=== PATIENT | male | born 1955 | race Caucasian/White ===

== ENCOUNTER → 2017-08-02 | Outpatient (CLI) | payer BC ==
--- NOTE | 2017-08-02 11:40 | ECHOF ---
Referral Reason:A Fib I48.91 MEASUREMENTS -------- HEIGHT: 182.9 cm WEIGHT: 82.5 kg BP: 157/109 RVIDd: 2.3 cm (< 3.3) IVSd: 0.9 cm (0.6 - 1.1) LVIDd: 4.9 cm (3.9 - 5.3) LVPWd: 1.2 cm (0.6 - 1.1) IVSs: 1.3 cm LVIDs: 4.1 cm LVPWs: 1.3 cm LA Diam: 3.7 cm (2.7 - 3.8) LAESV Index (A-L): 50.06 ml/m Ao Diam: 3.3 cm (2.0 - 3.7) AV Cusp: 2.3 cm (1.5 - 2.6) LA Diam: 4.1 cm (2.7 - 3.8) MV EXCURSION: 20.824 mm (> 18.000) MV EF SLOPE: 117 mm/s (70 - 150) EPSS: 0.2 cm RAP: 5.00 mmHg RVSP: 20.45 mmHg FINDINGS -------- Atrial fibrillation. This was a technically adequate study. The left ventricular size is normal. There is mild concentric left ventricular hypertrophy. Overa ll left ventricular systolic function is mildly impaired with, an EF between 45 - 50 %. The right ventricle is normal in size. LA is severely dilated >40 ml/m2 The right atrial size is normal. The aortic valve is trileaflet, and appears structurally normal. No aortic stenosis or regurgitation. Mild mitral regurgitation is present. No regurgitation noted There is no evidence of pulmonary hypertension. The right ventricular syst olic pressure, as measured by Doppler, is 20.45mmHg. There is no pulmonic regurgitation present. The aortic root size is normal. There is no pericardial effusion. CONCLUSIONS -------- 1. The left ventricular size is normal. 2. There is mild concentric left ventricular hypertrophy. 3. Overall left ventricular systolic function is mildly impaired with, an EF between 45 - 50 %. 4. LA is severely dilated >40 ml/m2 5. The aortic valve is trileaflet, and appears structurally normal. No aortic stenosis or regurgitati on. 6. Mild mitral regurgitation is present. 7. No regurgitation noted 8. There is no evidence of pulmonary hypertension. 9. The right ventricular systolic pressure, as measured by Doppler, is 20.45mmHg. 10. The aortic root size is normal. 11. There is no pericardial effusion. SAILBOAT CAPTAIN: Anita Baker RDCS
--- NOTE | 2017-08-02 12:42 | PN ---
PROGRESS NOTE Mr. Kurtis Bonner was sent for a stress echo by Dr. Alonso. He was in atrial fib with a moderately rapid ventricular rate. He had not taken his beta blockers as advised. However, since his rate is faster, he did not have a stress test. He will therefore not be billed for any stress test and he will be brought back for a Lexiscan stress test. Because of atrial fibrillation and variable rate, I am recommending we optimize rate control first and when we bring him back, he is more suited for a Lexiscan stress test. He has underlying ST-segment abnormality, making this difficult to interpret and therefore a Lexiscan stress test would be better rather than exercising him. This was explained to the patient and he was advised to resume his beta rocio and I also talked to who will leave a message for Dr. Alonso. GELACIO / IMANI: [id number] /
== END | disposition home or self-care (01) ==
LOC: RADNMMAIN 09:49
PROVIDERS: ATTEND Internal Medicine Geriatric Medicine
DX: I34.0 Nonrheumatic mitral (valve) insufficiency (principal); I51.7 Cardiomegaly; I48.91 Unspecified atrial fibrillation
CPT/HCPCS: 93017; 93306; 93350

== ENCOUNTER → 2017-10-13 | Outpatient (CLI) | payer BC ==
[2017-10-13 11:22] LABS: Blood Urea Nitrogen 21 mg/dL (9-20)
== END | disposition home or self-care (01) ==
LOC: LABWHC1 10:54
PROVIDERS: ATTEND Internal Medicine Geriatric Medicine
DX: Z01.812 Encounter for preprocedural laboratory examination (principal); M54.2 Cervicalgia
CPT/HCPCS: 36415; 82565; 84520

== ENCOUNTER → 2017-10-17 | Outpatient (CLI) | payer BC ==
--- NOTE | 2017-10-17 13:15 | MR ---
EXAMINATION TYPE: MR cervical spine wo/w con DATE OF EXAM: 10/17/2017 COMPARISON: NONE HISTORY: Cervicalgia TECHNIQUE: Multiplanar, multisequence images of the cervical spine were acquired utilizing 7.5 mL intravenous Ga davist gadolinium contrast. Diffusion weighted imaging was performed. There is anterior hypertrophic spur and osteophyte formation resulting in anterior fusion of the vert ebral segments at levels C3-C7. Areas of abnormal signal involving the disc likely related to desicca tion. C2-C3: Degenerative disc disease but no evidence of canal stenosis or disc herniation. No foraminal e ncroachment. C3-C4: Degenerative disc disease but no disc herniation, canal stenosis, or foraminal encroachment. C4-C5: Mild facet arthropathy. Degenerative disc disease but no foraminal encroachment, disc herniati on or canal stenosis. C5-C6: Degenerative disc disease and mild facet arthropathy. No foraminal encroachment, disc herniati on or canal stenosis. C6-C7: No evidence for degenerative disc disease. No disc bulge/herniation or protrusion. No Canal stenosis. Foramina are patent bilaterally. C7-T1: Degenerative disc disease but no disc herniation or canal stenosis. No foraminal encroachment. Cervical segments are intact. There is normal alignment. Cervical spinal cord is of normal signal. Craniovertebral junction relationships are within normal limits. Vertebral body hemangioma in the u pper thoracic spine noted. Suspect a left-sided thyroid nodule or area of thyroiditis measuring 1.2 c m. IMPRESSION: 1. Multilevel degenerative disc disease with flowing anterior osteophytes anteriorly resulting in fus ion of levels C3-C7. Differential diagnosis includes diffuse idiopathic skeletal hyperostosis or anky losing spondylitis. 2. No disc herniation, foraminal encroachment or canal stenosis. 3. Questionable left thyroid nodule correlate with ultrasound as clinically warranted.
== END | disposition home or self-care (01) ==
LOC: RADMRIMAIN 11:54
PROVIDERS: ATTEND Internal Medicine Geriatric Medicine
DX: M50.33 Other cervical disc degeneration, cervicothoracic region (principal); M43.22 Fusion of spine, cervical region
CPT/HCPCS: 72156; A9581

== ENCOUNTER 2017-11-10 06:19 | Day surgery (SDC) | payer BC ==
[2017-11-07 16:09] VITALS: BMI 24.8
[~2017-11-10 06:19] MED LIST: DEXAMETHASONE SOD PHOSPHATE 10 MG/ML 1 ML VIAL IV ONE; LACTATED RINGERS 1,000 ML IV SCH; MORPHINE SULFATE 4 MG/ML SYRINGE IV PRN; ONDANSETRON 4 MG/2 ML VIAL IVP ONE; ceFAZolin IN SWFI 2 GM/20 ML SYRINGE IVP ONE
[2017-11-10] MEDS ORDERED: LIDOCAINE 1% 20 ML VIAL (10MG/ML) FOR IV START INTRADERMA ONE (07:10)
[2017-11-10] MEDS ORDERED: LIDOCAINE 1%-EPI 1:100,000 30 ML VIAL SQ ONE ×2 (07:22)
[2017-11-10] MEDS ORDERED: BUPIVACAINE (PF) 0.25% 30 ML VIAL SQ ONE ×2 (07:22)
[2017-11-10] MEDS ORDERED: LIDOCAINE 1% INJ 10MG/ML (20 ML MDV) ONE (07:37)
[2017-11-10] MEDS ORDERED: MIDAZOLAM 2 MG/2 ML VIAL ONE (07:37)
[2017-11-10] MEDS ORDERED: ROCURONIUM BROMIDE 10 MG/ML 10 ML VIAL IV ONE (07:37)
[2017-11-10] MEDS ORDERED: SUCCINYLCHOLINE CHLORIDE 100 MG/5 ML SYR IV ONE (07:37)
[2017-11-10] MEDS ORDERED: fentaNYL (PF) 50 MCG/ML 2 ML AMP ONE (07:37)
[2017-11-10] MEDS ORDERED: NEOSTIGMINE 1 MG/ML 10 ML VIAL ONE (07:37)
[2017-11-10] MEDS ORDERED: GLYCOPYRROLATE 0.2 MG/ML 2 ML VIAL ONE (07:37)
[2017-11-10] MEDS ORDERED: PROPOFOL 10 MG/ML 20 ML VIAL IV ONE (07:37)
[2017-11-10] MEDS ORDERED: PHENYLEPHRINE-0.9% NACL SYG 1 MG/10 ML SYRINGE ONE (07:37)
[2017-11-10] MEDS ORDERED: ePHEDrine SULFATE/0.9% NACL/PF 50 MG/5 ML SYRINGE IV ONE (07:37)
[2017-11-10] MEDS ORDERED: LACTATED RINGERS 1,000 ML IV ONE (08:20)
[2017-11-10 09:16] VITALS: TEMP 97.4
[2017-11-10 09:17] VITALS: RESP 16
--- NOTE | 2017-11-10 09:38 | P.OP ---
Date of Procedure: 11/10/17 Preoperative Diagnosis: Recurrent left-sided inguinal hernia Postoperative Diagnosis: Same Anesthesia: KTA Surgeon: Aman Belcher Condition: stable Disposition: PACU Indications for Procedure: 62-year-old male presented in my clinic with a chief complaint recurrent left inguinal hernia he previously had a robotic repair. I discarded the response and alternatives to open repair of his left recurrent inguinal hernia risk including bleeding infection damage any tissue need further operation recurrence he stated he understood agreed and consented informed consent was obtained Description of Procedure: Patient was brought operative suite remained in the supine position prepped and draped usual sterile fashion timeout was performed correct patient correct procedure correct site was verified. A 5 cm incision was made in the patient's left groin tear down the external oblique fascia which was incised in the usual fashion. Cord structures were encircled bluntly with [place] drain and there was a recurrent direct and indirect component noted. The hernia was easily reduced off the cord and 2-0 Vicryl suture was used to imbricate the floor of the inguinal canal allowing the mesh to lay flat. Bard mesh was then placed after being cut the appropriate size and sutured in place and secured at the pubis with 2-0 Vicryl and circumferentially sutured around the floor of the inguinal canal. The external oblique fascia was then reapproximated using 3-0 Vicryl suture the skin was closed with subdermal interrupted sutures followed by subcuticular running suture. Sterile dressing was applied patient type procedure well no apparent complications Plan - Discharge Summary New Discharge Prescriptions: New HYDROcodone/APAP 5-325MG [Laurens 5-325] 1 tab PO Q6HR PRN #30 tab PRN Reason: Pain Docusate [Colace] 100 mg PO DAILY #10 capsule No Action Atorvastatin [Lipitor] 10 mg PO DAILY Metoprolol Succinate (ER) [Toprol Xl] 50 mg PO QAM Apixaban [Eliquis] 5 mg PO BID Losartan Potassium 100 mg PO QAM Bimatoprost [Bimatoprost .03% Ophth Soln] 1 drop BOTH EYES HS amLODIPine BESYLATE [Norvasc] 10 mg PO QAM Discharge Medication List Atorvastatin [Lipitor] 10 mg PO DAILY 11/27/15 [History] Apixaban [Eliquis] 5 mg PO BID 11/07/17 [History] Bimatoprost [Bimatoprost .03% Ophth Soln] 1 drop BOTH EYES HS 11/07/17 [History] Losartan Potassium 100 mg PO QAM 11/07/17 [History] Metoprolol Succinate (ER) [Toprol Xl] 50 mg PO QAM 11/07/17 [History] amLODIPine BESYLATE [Norvasc] 10 mg PO QAM 11/07/17 [History] Docusate [Colace] 100 mg PO DAILY #10 capsule 11/10/17 [Rx] HYDROcodone/APAP 5-325MG [Laurens 5-325] 1 tab PO Q6HR PRN #30 tab 11/10/17 [Rx] Follow up Appointment(s)/Referral(s): Aman Belcher DO [Doctor of Osteopathic Medicine] - 1 Week Activity/Diet/Wound Care/Special Instructions: Dressing can stay on for 24 hours, keep steri strips on for 1 week or until they begin to peel off. He may shower tomorrow. Pat dry
[2017-11-10] MEDS ORDERED: HYDROcodone/APAP 5-325MG 1 EACH TAB PO ONE (10:33)
[2017-11-10 11:35] VITALS: BP 122/85; PULSE 66
== END 2017-11-10 12:14 | disposition home or self-care (01) ==
LOC: OR 06:19
PROVIDERS: ATTEND Student in an Organized Health Care Education/Training Program
DX: K40.91 Unilateral inguinal hernia, without obstruction or gangrene, recurrent (principal); I48.91 Unspecified atrial fibrillation; Z79.01 Long term (current) use of anticoagulants; M19.90 Unspecified osteoarthritis, unspecified site; I10 Essential (primary) hypertension; E78.00 Pure hypercholesterolemia, unspecified; E78.5 Hyperlipidemia, unspecified; M45.2 Ankylosing spondylitis of cervical region; Z80.0 Family history of malignant neoplasm of digestive organs; Z82.49 Family history of ischemic heart disease and other diseases of the circulatory system; Z79.899 Other long term (current) drug therapy
CPT/HCPCS: 49520; C1781; J2250; J1100; J2710; J2405; J2001; J3010; J2370; J0330; J2704; J0690; 93005

== ENCOUNTER 2017-12-23 06:31 | Day surgery (SDC) | payer BC ==
[2017-12-20 11:47] VITALS: BMI 25.0
[~2017-12-23 06:31] MED LIST changes: -DEXAMETHASONE SOD PHOSPHATE 10 MG/ML 1 ML VIAL IV ONE; -MORPHINE SULFATE 4 MG/ML SYRINGE IV PRN; -ONDANSETRON 4 MG/2 ML VIAL IVP ONE; +SODIUM CHLORIDE 0.9% 1,000 ML IV SCH; -ceFAZolin IN SWFI 2 GM/20 ML SYRINGE IVP ONE
[2017-12-23 06:50] VITALS: TEMP 97.9
[2017-12-23 07:20] LABS: Anion Gap 12 mmol/L; Blood Urea Nitrogen 22 mg/dL (9-20); Calcium 9.3 mg/dL (8.4-10.2); Carbon Dioxide 27 mmol/L (22-30); Chloride 107 mmol/L (98-107); Glucose 95 mg/dL (74-99); Sodium 146 mmol/L (137-145)
[2017-12-23] MEDS ORDERED: IV FLUID CONTINUATION 500 ML IV ONE ×2 (07:21)
[2017-12-23] MEDS ORDERED: PROPOFOL 10 MG/ML 20 ML VIAL IV ONE (07:30)
--- NOTE | 2017-12-23 08:25 | CE ---
CARDIAC ELECTROPHYSIOLOGY REPORT CARDIOVERSION DATE OF SERVICE: 12/23/2017 PERFORMING PHYSICIAN: Marco Harrington MD. PROCEDURE PERFORMED: Successful cardioversion of atrial fibrillation to normal sinus mechanism. COMPLICATION: None. LEVEL OF SEDATION: Deep sedation was performed with a ELECTRIC POWER LINE EXAMINER in the room. INDICATION: This is a pleasant 62-year-old gentleman who was diagnosed recently with atrial fibrillation. He was brought today to undergo cardioversion. PROCEDURE DESCRIPTION: After obtaining an informed consent, the patient was brought to the recovery suite. Patient was put under general anesthesia with ELECTRIC POWER LINE EXAMINER in the room. We did convert him from A. fib to normal sinus mechanism using 200 joules on first attempt. CONCLUSION: Successful cardioversion of atrial fibrillation to normal sinus mechanism using 200 joules on first attempt. MMODL / IJN: [id number] /
[2017-12-23 08:45] VITALS: RESP 18
[2017-12-23 09:44] VITALS: PULSE 56
[2017-12-23 09:47] VITALS: BP 125/77
== END 2017-12-23 09:47 | disposition home or self-care (01) ==
LOC: CATHCVL 06:31
PROVIDERS: ATTEND Internal Medicine Interventional Cardiology
DX: I48.2 Chronic atrial fibrillation (principal); I10 Essential (primary) hypertension; E78.5 Hyperlipidemia, unspecified; I42.9 Cardiomyopathy, unspecified; F10.10 Alcohol abuse, uncomplicated; G47.30 Sleep apnea, unspecified; Z79.01 Long term (current) use of anticoagulants; Z79.899 Other long term (current) drug therapy
CPT/HCPCS: 92960; 80048; J2704

== ENCOUNTER 2023-08-31 19:20 | Emergency (ER) | payer BC ==
--- NOTE | 2023-08-31 19:42 | ED ---
GI Bleed HPI - General Source: patient, RN notes reviewed Mode of arrival: ambulatory Limitations: no limitations <Bethany Higgins - Last Filed: 08/31/23 19:39> <Medina Anderson - Last Filed: 09/01/23 00:32> - General Chief complaint: GI Bleed Stated complaint: Rectal bleeding Time Seen by Provider: 08/31/23 19:39 - History of Present Illness Initial comments: This is a 68 year old male who presents to the emergency department for rectal bleeding. States that this is bright red. He had a colonoscopy on Tuesday and wonders if it may be related. Denies any pain associated with this. (Bethany Higgins) - Related Data Home Medications Medication Instructions Recorded Confirmed Atorvastatin [Lipitor] 10 mg PO DAILY 11/27/15 12/23/17 Apixaban [Eliquis] 5 mg PO BID 11/07/17 12/23/17 Bimatoprost [Bimatoprost 0.03% 1 drop BOTH EYES HS 11/07/17 12/23/17 Ophth Soln] Losartan Potassium 100 mg PO QAM 11/07/17 12/23/17 amLODIPine BESYLATE [Norvasc] 10 mg PO QAM 11/07/17 12/23/17 Previous Rx's Medication Instructions Recorded Docusate [Colace] 100 mg PO DAILY #10 capsule 11/10/17 HYDROcodone/APAP 5-325MG [R[place]kin 1 tab PO Q6HR PRN #30 tab 11/10/17 5-325] Metoprolol Succinate (ER) [Toprol 25 mg PO QAM #0 12/23/17 XL] Allergies Allergy/AdvReac Type Severity Reaction Status Date / Time No Known Allergies Allergy Verified 08/31/23 19:34 Review of Systems ROS Other: All systems not noted in ROS Statement are negative. <Bethany Higgins - Last Filed: 08/31/23 19:39> ROS Other: All systems not noted in ROS Statement are negative. <Medina Anderson - Last Filed: 09/01/23 00:32> ROS Statement: Those systems with pertinent positive or pertinent negative responses have been documented in the HPI. Past Medical History Past Medical History: Atrial Fibrillation, Hyperlipidemia, Hypertension Additional Past Medical History / Comment(s): left inguinal hernia History of Any Multi-Drug Resistant Organisms: None Reported Past Surgical History: Hernia Repair Additional Past Surgical History / Comment(s): left inguinal hernia repair 11/20/17. COLONOSCOPY Past Anesthesia/Blood Transfusion Reactions: No Reported Reaction Past Psychological History: No Psychological Hx Reported Past Alcohol Use History: None Reported Past Drug Use History: None Reported - Past Family History Father Family Medical History: Cancer Additional Family Medical History / Comment(s): COLON CANCER <Bethany Higgins - Last Filed: 08/31/23 19:39> General Exam Limitations: no limitations <Bethany Higgins - Last Filed: 08/31/23 19:39> - General Exam Comments Initial Comments: Visual Physical Exam Vital signs reviewed General: Well-appearing, nontoxic, no acute distress. Head: Normocephalic, atraumatic Eyes: PERRLA, EOMI ENT: Airway patent Chest: Nonlabored breathing Skin: No visual rash, normal skin tone Neuro: Alert and oriented 3 Musculoskeletal: No gross abnormalities (Bethany Higgins) Course Vital Signs 08/31/23 08/31/23 09/01/23 19:32 22:30 00:00 Temperature 97.8 F Pulse Rate 71 77 96 Respiratory 18 16 18 Rate Blood Pressure 117/85 133/90 103/83 O2 Sat by Pulse 95 99 97 Oximetry Medical Decision Making <Bethany Higgins - Last Filed: 08/31/23 19:39> - Lab Data Result diagrams: 08/31/23 20:02 08/31/23 20:02 <Medina Anderson - Last Filed: 09/01/23 00:32> - Medical Decision Making I performed the QuickNote portion of this chart. Signed Bethany Higgins PA-C. (Bethany Higgins) - Lab Data Lab Results 08/31/23 08/31/23 08/31/23 Range/Units 20:02 20:02 20:02 WBC 10.0 (3.8-10.6) k/uL RBC 5.16 (4.30-5.90) m/uL Hgb 15.9 (13.0-17.5) gm/dL Hct 46.1 (39.0-53.0) % MCV 89.4 (80.0-100.0) fL MCH 30.9 (25.0-35.0) pg MCHC 34.5 (31.0-37.0) g/dL RDW 13.2 (11.5-15.5) % Plt Count 178 (150-450) k/uL MPV 9.8 Neutrophils % 64 % Lymphocytes % 26 % Monocytes % 6 % Eosinophils % 2 % Basophils % 1 % Neutrophils # 6.4 (1.3-7.7) k/uL Lymphocytes # 2.6 (1.0-4.8) k/uL Monocytes # 0.6 (0-1.0) k/uL Eosinophils # 0.2 (0-0.7) k/uL Basophils # 0.1 (0-0.2) k/uL Poikilocytosis Slight PT 10.9 (10.0-12.5) sec INR 1.0 (<1.2) APTT 23.6 (22.0-30.0) sec Sodium 138 (137-145) mmol/L Potassium 3.8 (3.5-5.1) mmol/L Chloride 107 (98-107) mmol/L Carbon Dioxide 21 L (22-30) mmol/L Anion Gap 10 mmol/L BUN 19 (9-20) mg/dL Creatinine 1.04 (0.66-1.25) mg/dL Est GFR (CKD-EPI)AfAm 86 (>60 ml/min/1.73 sqM) Est GFR (CKD-EPI)NonAf 74 (>60 ml/min/1.73 sqM) Glucose 109 H (74-99) mg/dL Calcium 9.4 (8.4-10.2) mg/dL Total Bilirubin 1.5 H (0.2-1.3) mg/dL AST 34 (17-59) U/L ALT 33 (4-49) U/L Alkaline Phosphatase 86 (38-126) U/L Total Protein 7.6 (6.3-8.2) g/dL Albumin 4.6 (3.5-5.0) g/dL Disposition <Bethany Higgins - Last Filed: 08/31/23 19:39> Is patient prescribed a controlled substance at d/c from ED?: No Time of Disposition: 00:32 <Median Anderson - Last Filed: 09/01/23 00:32> Clinical Impression: GI bleed Disposition: HOME SELF-CARE Condition: Stable Instructions (If sedation given, give patient instructions): Gastrointestinal Bleeding (ED) Additional Instructions: I have recommended that you be transferred. If you have continued symptoms, I recommend that you please return to the emergency department for further evaluation Referrals: Dionicio Alonso MD [Primary Care Provider] - 1-2 days Lana Lion MD [STAFF PHYSICIAN] - 1-2 days
[2023-08-31 20:29] LABS: Basophils # (A) 0.1 k/uL (0-0.2); Basophils % (A) 1 %; Eosinophils # (A) 0.2 k/uL (0-0.7); Eosinophils % (A) 2 %; HCT 46.1 % (39.0-53.0); HGB 15.9 gm/dL (13.0-17.5); Lymphocytes # (A) 2.6 k/uL (1.0-4.8); Lymphocytes % (A) 26 %; MCH 30.9 pg (25.0-35.0); MCHC 34.5 g/dL (31.0-37.0); MCV 89.4 fL (80.0-100.0); Mean Platelet Volume 9.8; Monocytes # (A) 0.6 k/uL (0-1.0); Monocytes % (A) 6 %; Neutrophils # (A) 6.4 k/uL (1.3-7.7); Neutrophils % (A) 64 %; Platelet Count 178 k/uL (150-450); Poikilocytosis Slight; RBC 5.16 m/uL (4.30-5.90); RDW 13.2 % (11.5-15.5)
[2023-08-31 20:39] LABS: ALT 33 U/L (4-49); AST 34 U/L (17-59); African American GFR (CKD) 86 (>60 ml/min/1.73 sqM); Albumin 4.6 g/dL (3.5-5.0); Alkaline Phosphatase 86 U/L (38-126); Anion Gap 10 mmol/L; Blood Urea Nitrogen 19 mg/dL (9-20); Calcium 9.4 mg/dL (8.4-10.2); Carbon Dioxide 21 mmol/L (22-30); Chloride 107 mmol/L (98-107); Glucose 109 mg/dL (74-99); Non-African American GFR(CKD) 74 (>60 ml/min/1.73 sqM); Potassium 3.8 mmol/L (3.5-5.1); Sodium 138 mmol/L (137-145); Total Bilirubin 1.5 mg/dL (0.2-1.3); Total Protein 7.6 g/dL (6.3-8.2)
[2023-08-31 20:56] LABS: Partial Thromboplastin Time 23.6 sec (22.0-30.0); Prothrombin Time 10.9 sec (10.0-12.5)
[2023-09-01 01:09] VITALS: BP 100/75; PULSE 60; RESP 16; TEMP 98.7
== END 2023-09-01 00:47 | disposition home or self-care (01) ==
LOC: EC 19:20
DX: K92.2 Gastrointestinal hemorrhage, unspecified (principal); I48.91 Unspecified atrial fibrillation; E78.5 Hyperlipidemia, unspecified; I10 Essential (primary) hypertension; Z79.899 Other long term (current) drug therapy; Z79.01 Long term (current) use of anticoagulants
CPT/HCPCS: 36415; 80053; 82272; 85025; 85610; 85730; 99284

== ENCOUNTER → 2023-11-10 | Outpatient (CLI) | payer BC ==
[2023-11-10 14:47] LABS: Basophils # (A) 0.06 X 10*3/uL (0.00-0.10); Basophils % (A) 0.6 %; HCT 51.7 % (39.6-50.0); HGB 17.1 g/dL (13.0-17.0); Lymphocytes # (A) 2.21 X 10*3/uL (0.90-5.00); Lymphocytes % (A) 22.7 %; MCH 29.5 pg (27.0-32.0); MCHC 33.1 g/dL (32.0-37.0); MCV 89.1 FL (80.0-97.0); Mean Platelet Volume 12.2 FL (9.5-12.2); Monocytes % (A) 7.2 %; NRBC Per 100 WBC 0 X 10*3/uL (0.00-0.01); Neutrophils # (A) 6.66 X 10*3/uL (1.80-7.70); Neutrophils % (A) 68.3 %; Platelet Count 178 X 10*3/uL (140-440); RDW 12.5 % (11.5-14.5); WBC 9.75 X 10*3/uL (4.50-10.00)
[2023-11-10 14:51] LABS: % Iron Saturation 21.46 (15.00-50.00); Blood Urea Nitrogen 16.2 mg/dL (9.0-27.0); Carbon Dioxide 24.7 mmol/L (21.6-31.8); Chloride 104 mmol/L (96-109); Iron 88 UG/DL (65-175); Potassium 3.9 mmol/L (3.5-5.5); Sodium 142 mmol/L (135-145); Total Iron Binding Capacity 410 UG/DL (228-460)
== END | disposition home or self-care (01) ==
LOC: LABWHC1 10:11
PROVIDERS: ATTEND Internal Medicine Gastroenterology
DX: D64.9 Anemia, unspecified (principal)
CPT/HCPCS: 36415; 80051; 82565; 83540; 83550; 84520; 85025

== ENCOUNTER → 2024-02-24 | Outpatient (CLI) | payer BC ==
--- NOTE | 2024-02-27 03:28 | MR ---
EXAMINATION TYPE: MR shoulder RT wo con DATE OF EXAM: 02/24/2024 COMPARISON: Outside right shoulder x-ray February 15, 2024 HISTORY: Right shoulder pain and difficulty raising arm x3 months TECHNIQUE: Multiplanar, multisequence imaging of the right shoulder is performed without contrast. FINDINGS: Rotator Cuff: Increased signal in the infraspinatus and supraspinatus tendons. Some heterogeneity of the subscapularis tendon with surrounding fluid. Rotator cuff muscle bulk is preserved. Acromioclavicular Joint: Mild narrowing and capsular hypertrophy at the acromioclavicular joint. Mild spurring. Glenohumeral Joint: Moderate to large size joint effusion. No significant spurring. Labrum: The labrum appears grossly intact given limitation of non-arthrogram study. Biceps Tendon: The long head of biceps is in normal location within bicipital groove. Bone marrow signal: Subchondral cystic change anterior lateral aspect of the humeral head. Other: No additional significant abnormality is appreciated. IMPRESSION: 1. Tendinosis/partial tearing of the supraspinatus and infraspinatus tendons. 2. Moderate to large size glenohumeral joint effusion.
== END | disposition home or self-care (01) ==
LOC: RADMRIMAIN 11:12
PROVIDERS: ATTEND Orthopaedic Surgery
DX: M75.111 Incomplete rotator cuff tear or rupture of right shoulder, not specified as traumatic (principal); M67.813 Other specified disorders of tendon, right shoulder; M25.411 Effusion, right shoulder